=== PATIENT | male | born 1945 | race Two or more races ===

== ENCOUNTER 2019-04-15 09:30 | Inpatient (IN) | payer OTHER ==
[~2019-04-15] VITALS: Ht 182.9 cm; Wt 85.7 kg
--- NOTE | 2019-04-15 06:27 | NUR ---
Closing note: Patient is resting in bed, no acute distress. Even and unlabored breathing on room air. IV site to right forearm patent and intact, no infiltration. All needs met. Safety, fall precautions observed. Will endorse care to chandler RN. Addendum: 04/16/19 at 0632 by Vinayak Piper RN Please disregard above note, wrong date.
[2019-04-15 09:38] VITALS: BP_SYST 116
--- NOTE | 2019-04-15 09:38 | NUR ---
Patient to ER bed 5 to gown for evaluation. Side rails up. Report given to Antonio COOPER.
[2019-04-15] MEDS ORDERED: NS 500 ML IV ONE (09:45)
--- NOTE | 2019-04-15 09:45 | NUR ---
PATIENT PRESENTS TO THE ER WITH TWO DAY HX OF FALLS AND WEAKNESS; NO TRAUMA, NO OTHER REMARKABLE S/S; TO ER #5 AT 0930 AND ERMD EVALUATION AT 0945
[2019-04-15] MEDS ORDERED: ONDANSETRON HCL 4 MG/2 ML VIAL IVP ONE (10:00)
[2019-04-15] MEDS ORDERED: MORPHINE 2 MG/ML INJ. SYRINGE IVP ONE ×3 (10:00→12:00)
--- NOTE | 2019-04-15 10:08 | NUR ---
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
[2019-04-15 10:26] LABS: BASOPHILS % (AUTO) 0.3 % (0.0-2.0); EOSINOPHILS # (AUTO) 0.2 K/uL (0.0-0.4); EOSINOPHILS % (AUTO) 2.4 % (0.0-4.0); HEMATOCRIT 43.2 % (36-54); HEMOGLOBIN 14.5 g/dL (14.0-18.0); LYMPHOCYTES # (AUTO) 0.4 K/uL (1.0-5.5); LYMPHOCYTES % (AUTO) 5.4 % (20.5-51.5); MEAN CORPUSCULAR HEMOGLOBIN 30 pg (27-31); MEAN CORPUSCULAR HGB CONC 34 % (32-36); MEAN CORPUSCULAR VOLUME 90 fL (79.0-98.0); MONOCYTES # (AUTO) 0.4 K/uL (0.0-1.0); MONOCYTES % (AUTO) 6.4 % (1.7-9.3); NEUTROPHILS # (AUTO) 5.7 K/uL (1.8-7.7); NEUTROPHILS % (AUTO) 85.5 % (40.0-70.0); PLATELET COUNT (AUTO) 165 K/uL (130-430); RED BLOOD CELL COUNT(AUTO) 4.82 MIL/uL (4.2-6.2); RED CELL DISTRIBUTION WIDTH 13.7 % (9.0-15.0); WHITE BLOOD COUNT (AUTO) 6.6 K/uL (4.8-10.8)
--- NOTE | 2019-04-15 10:32 | NUR ---
IV PLACED #22 RAC; PATIENT STATES HE FEELS IMPROVED AFTER HYDRATION AND MEDS; DISPOSITION PENDING
[2019-04-15 10:38] LABS: ANION GAP 12 (5-15); CALCIUM 8.1 mg/dL (8.4-11.0); CHLORIDE 97 mmol/L (98-107); CREATININE 1.49 mg/dL (0.55-1.30); GLUCOSE 98 mg/dL (70-99); POTASSIUM 3.3 mmol/L (3.5-5.1); SODIUM SERUM 134 mmol/L (136-145); UREA NITROGEN, BLOOD 23 mg/dL (8-21)
[2019-04-15 10:41] LABS: INR 1.2 (0.80-1.20)
[2019-04-15 10:42] LABS: ALANINE AMINOTRANSFERASE 14 U/L (12-78); ALBUMIN 3.5 g/dL (3.4-4.8); ASPARTATE AMINOTRANSFERASE 22 U/L (10-37); TOTAL BILIRUBIN 1.9 mg/dL (0.0-1.0)
[2019-04-15] MEDS ORDERED: METOPROLOL TARTRATE 25 MG TABLET PO ONE (10:45)
--- NOTE | 2019-04-15 11:04 | NUR ---
REASSESSMENT; PATIENT STATES NEW ONSET OF LEFT LUMBAR PAIN; ERMD ADVISED; OTHERWISE SEDATE AND UNCHANGED
--- NOTE | 2019-04-15 11:05 | NUR ---
MORPHINE 2MG AND LOPRESSOR HELD PER ERMD
[2019-04-15] MEDS ORDERED: ASPI-858 PO (11:22)
[2019-04-15] MEDS ORDERED: HYD10 PO ×2 (11:22)
[2019-04-15] MEDS ORDERED: CARI350T27 PO (11:22)
[2019-04-15] MEDS ORDERED: ALBU90AE INH (11:22)
[2019-04-15] MEDS ORDERED: LACT1TAB26 PO (11:26)
[2019-04-15] MEDS ORDERED: POTA10CA68 PO (11:26)
[2019-04-15] MEDS ORDERED: PROP10TA10 PO (11:26)
[2019-04-15] MEDS ORDERED: MAGN400C PO (11:26)
[2019-04-15] MEDS ORDERED: NAPR-690 PO (11:26)
[2019-04-15] MEDS ORDERED: PROP20TA7 PO (11:26)
[2019-04-15] MEDS ORDERED: SILD100T PO (11:27)
[2019-04-15] MEDS ORDERED: SIMV40TA5 PO (11:27)
[2019-04-15] MEDS ORDERED: NACL 0.9% 1,000 ML IV ONE ×2 (12:00→12:15)
[2019-04-15] MEDS ORDERED: LORazepam 2 MG/ML VIAL IVP ONE (12:00)
[2019-04-15] MEDS ORDERED: LEVOFLOXACIN 500 MG/D5W 100 ML IV ONE (12:15)
[2019-04-15 14:13] LABS: BILIRUBIN,URINE NEGATIVE (NEGATIVE); BLOOD, URINE TRACE (NEGATIVE); CLARITY/URINE CLEAR (CLEAR); COLOR,URINE YELLOW (YELLOW); GLUCOSE,URINE NEGATIVE (NEGATIVE); KETONES,URINE TRACE (NEGATIVE); LEUKOCYTE ESTERASE ,URINE NEGATIVE (NEGATIVE); NITRITE, URINE NEGATIVE (NEGATIVE); PROTEIN URINE 1+ (NEGATIVE)
[2019-04-15] MEDS ORDERED: ACETAMINOPHEN 500 MG TABLET PO ONE (14:15)
[2019-04-15 14:17] LABS: BACTERIA,URINE FEW /HPF (None Seen)
--- NOTE | 2019-04-15 16:11 | NUR ---
PATIENT COMBATIVE AND UNCOOPERATIVE WITH STOOL AND URINE INCONTENANCE; PATIENT CLEANED AND IS MORE SEDATE NOW; MITTENS ATTEMPTED WITH NO BENEFIT AND DISCONTINUED; PREPARATIONS TO ADMIT TO TELE; TEMPERATURE ELEVATION RENOTIFIED TO ERMD; AT BED SIDE AND ADVISED; ADMISSION PENDING
--- NOTE | 2019-04-15 16:12 | NUR ---
IV NON FUNCTIONAL AND OUT AND DRESSED; #22 TO RIGHT FOREARM
[2019-04-15] MEDS ORDERED: ACETAMINOPHEN 500 MG TABLET ONE (16:33)
--- NOTE | 2019-04-15 16:34 | NUR ---
Patient will be admitted to care of Win Morales. Admitted to tele unit. Will go to room 134. Belongings list completed. Complete and up to date summary report printed. SBAR report to be given at bedside with opportunity for questions. Transfer to tele via ACLS protocol. Licensed nurse present. IV present no signs or symptoms of infiltration.
--- NOTE | 2019-04-15 16:36 | NUR ---
ADMISSION NOTE Received patient from ER via wilfredo, received report from NANI COOPER. Patient admitted with diagnosis of UROSEPSIS. Patient oriented to hospital routine, call light, toileting and safety-patient verbalized understanding.
[2019-04-15 16:53] VITALS: BP_SYST 103
[2019-04-15 16:54] VITALS: BP_SYST 103
[2019-04-15] MEDS: D5/0.45 NS 1,000 ML IV SCH (17:13)
--- NOTE | 2019-04-15 17:18 | NUR ---
CONSULTATION PAGED/CALLED Reason for Consultation: [] UROSEPSIS Person Who was Notified: [] QUINCY Consulting Physician: [] DR CREWS Salesperson Hosiery Specialty: [] ID Ordering Physician: [] DR Allison PALOMINO
--- NOTE | 2019-04-15 17:45 | NUR ---
Notes: Received patient from ER. cc of fever, back pain and general weakness, dx of Urosepsis. patient alert, awake, orientedx4, informed about the poc and verbalized understanding spouse at bedside. will take belongings home. left upper leg scratches noted. no open skin. call light within reach. bed alarm on. no other concerned noted.
--- NOTE | 2019-04-15 19:35 | NUR ---
Initial note: Received report from chandler RN. Patient is resting in bed, no acute distress. Tolerating room air. IV site patent and benign. Call light with patient. Safety, fall precautions in place. Will continue with plan of care.
[2019-04-15 20:00] VITALS: BP_SYST 101
[2019-04-15] MEDS ORDERED: ACETAMINOPHEN 325 MG TABLET PO PRN (20:00)
[2019-04-15] MEDS ORDERED: HYDROcodone/ACETAMIN 5-325 MG TAB (NORCO/ VICODIN) PO PRN (20:00)
[2019-04-15] MEDS ORDERED: CARISOPRODOL 350 MG TABLET PO SCH (20:00)
[2019-04-15] MEDS ORDERED: NON-FORMULARY MEDICATION (Sildenafil Citrate (Viagra) 100 MG) PO SCH (20:00)
[2019-04-15] MEDS ORDERED: HYDROcodone/ACETAMIN 10-325 MG TAB PO PRN (20:00)
[2019-04-15] MEDS ORDERED: ASPIRIN 325 MG TABLET PO SCH (20:00)
[2019-04-15] MEDS ORDERED: ONDANSETRON HCL 4 MG/2 ML VIAL IVP PRN (20:00)
[2019-04-15] MEDS ORDERED: ALBUTEROL SULFATE 0.083% 2.5 MG/3 ML VIAL.NEB INH PRN (20:00)
[2019-04-15] MEDS ORDERED: LORazepam 2 MG/ML VIAL IVP PRN (20:00)
[2019-04-15] MEDS ORDERED: LEVOFLOXACIN 500 MG/D5W 100 ML IV SCH (20:00)
[2019-04-15] MEDS ORDERED: NAPROXEN 250 MG TABLET PO PRN (20:00)
--- NOTE | 2019-04-15 22:20 | NUR ---
Dr. Win Morales: Spoke with MD to clarify medication orders. MD also made aware regarding K = 3.3. Orders received for 40 MEQ Potassium PO, verified by read-back, RN to input.
[2019-04-15] MEDS: HYDROCORTISONE 10 MG TABLET (CORTEF) PO SCH (22:24)
[2019-04-15] MEDS: SIMVASTATIN 40 MG TABLET PO SCH (22:24)
[2019-04-15] MEDS ORDERED: POTASSIUM CHLORIDE 20 MEQ TAB.PRT.SR PO ONE (22:30)
[2019-04-15] MEDS ORDERED: CARISOPRODOL 350 MG TABLET PO PRN (22:30)
[2019-04-16] VITALS (7 sets, daily range): BP systolic 93–133
--- NOTE | 2019-04-16 00:03 | NUR ---
Rounds: Patient is resting comfortably in bed, no acute distress. Even and unlabored respirations. IV fluids infusing well. Call light with patient. Will continue to monitor.
--- NOTE | 2019-04-16 03:32 | NUR ---
Rounds: Patient is sleeping in bed, no acute distress. Even and unlabored breathing. IV fluids infusing well. Call light with patient. Will continue to monitor.
[2019-04-16] MEDS: D5/0.45 NS 1,000 ML IV SCH ×3 (05:35→20:24)
--- NOTE | 2019-04-16 06:31 | NUR ---
Closing note: Patient is resting in bed, no acute distress. Even and unlabored breathing on room air. IV site to right forearm patent and intact, no infiltration. All needs met. Safety, fall precautions observed. Will endorse care to dayshift RN.
[2019-04-16 06:52] LABS: BASOPHILS % (AUTO) 0.3 % (0.0-2.0); EOSINOPHILS # (AUTO) 0.1 K/uL (0.0-0.4); EOSINOPHILS % (AUTO) 2.7 % (0.0-4.0); HEMATOCRIT 38.3 % (36-54); LYMPHOCYTES # (AUTO) 0.3 K/uL (1.0-5.5); LYMPHOCYTES % (AUTO) 5.9 % (20.5-51.5); MEAN CORPUSCULAR HEMOGLOBIN 30 pg (27-31); MEAN CORPUSCULAR HGB CONC 34 % (32-36); MEAN CORPUSCULAR VOLUME 89 fL (79.0-98.0); MONOCYTES # (AUTO) 0.6 K/uL (0.0-1.0); MONOCYTES % (AUTO) 10.9 % (1.7-9.3); NEUTROPHILS # (AUTO) 4.1 K/uL (1.8-7.7); NEUTROPHILS % (AUTO) 80.2 % (40.0-70.0); PLATELET COUNT (AUTO) 133 K/uL (130-430); RED BLOOD CELL COUNT(AUTO) 4.32 MIL/uL (4.2-6.2); RED CELL DISTRIBUTION WIDTH 13.9 % (9.0-15.0); WHITE BLOOD COUNT (AUTO) 5.2 K/uL (4.8-10.8)
[2019-04-16 07:23] LABS: ANION GAP 7 (5-15); CHLORIDE 101 mmol/L (98-107); CREATININE 1.31 mg/dL (0.55-1.30); GLUCOSE 110 mg/dL (70-99); POTASSIUM 3.8 mmol/L (3.5-5.1); SODIUM SERUM 130 mmol/L (136-145); UREA NITROGEN, BLOOD 15 mg/dL (8-21)
--- NOTE | 2019-04-16 08:00 | NUR ---
initial notes rec patient asleep but arousable to stimuli. ivf infusing well on the r forearm. no infiltration noted. resp easy unlabored. no sob noted. bed to the lowest position and side rails up and locked. call light withn reached and knows when to calll for assistance. voiding using the urinal and uses the commode and had a small amount of bm. will continue to monitor patient.
[2019-04-16 08:50] LABS: C-REACTIVE PROTEIN QUANT 29.3 mg/dL (0-0.5)
[2019-04-16 08:58] LABS: CALCIUM 6.9 mg/dL (8.4-11.0)
[2019-04-16] MEDS ORDERED: POTASSIUM CHLORIDE 10 MEQ PO SCH (09:00)
[2019-04-16] MEDS ORDERED: NON-FORMULARY MEDICATION (Magnesium Oxide (Magnesium) 400 MG) PO SCH (09:00)
[2019-04-16] MEDS ORDERED: PROPRANOLOL HCL 20 MG PO SCH (09:00)
[2019-04-16 09:13] LABS: ERYTHROCYTE SEDIMENTATION RATE 34 MM/HR (0-15)
[2019-04-16] MEDS: LEVOFLOXACIN 500 MG/D5W 100 ML IV SCH (11:20)
[2019-04-16] MEDS: LACTOBACILLUS RHAMNOSUS GG 1 CAP CAPSULE PO SCH (11:24)
[2019-04-16] MEDS: ASPIRIN 325 MG TABLET PO SCH (11:24)
[2019-04-16] MEDS: MAGNESIUM OXIDE 400 MG TABLET PO SCH (11:24)
[2019-04-16] MEDS: POTASSIUM CHLORIDE 10 MEQ TAB.PRT.SR PO SCH (11:24)
[2019-04-16] MEDS: PROPRANOLOL HCL 10 MG TABLET (INDERAL) PO SCH ×2 (11:25→18:14)
[2019-04-16] MEDS: HYDROCORTISONE 10 MG TABLET (CORTEF) PO SCH ×2 (11:28→20:35)
[2019-04-16] MEDS ORDERED: CALCIUM GLUCONATE 2 GM in NS 100 ML IV ONE ×2 (12:00→15:00)
--- NOTE | 2019-04-16 12:00 | NUR ---
rounds wasseen by dr mahajan and dr morris and with orders. no sob noted. call light withn reached. ambulated with pt on thr hallway and mario well.
--- NOTE | 2019-04-16 12:29 | NUR ---
Nutrition Update Dawit Scale 18 noted. Pt admitted for urosepsis Diet: cardiac BMI: 27.3 kg/m2 RD to follow per nutrition care standards.
--- NOTE | 2019-04-16 12:52 | NUR ---
P.T. NOTES P.T. SEVERIANO COMPLETED; PATIENT MAY KATHRINE W/ NURSE FAUSTO HOYT. Addendum: 04/16/19 at 1252 by Mere Chao PT Amended: Links added.
[2019-04-16] MEDS ORDERED: VANCOMYCIN HCL 1,000 MG in NS 250 ML IV SCH (13:00)
--- NOTE | 2019-04-16 16:00 | NUR ---
rounds due mabx was given and mario well. no untoward reaction noted.
[2019-04-16] MEDS: MICAFUNGIN SODIUM 100 MG in NS 100 ML IV SCH (16:46)
--- NOTE | 2019-04-16 18:32 | NUR ---
closing notes was moved to another room. ambulated with nestor spencer and mario krishnan. at bedside with patient. denies pain when offerrd pain med/
--- NOTE | 2019-04-16 19:45 | NUR ---
OPENING NOTES Received report from KENNETH Gomez. Patient is resting in bed, awake, alert, oriented x 4, breathing evenly and nonlabored on room air, at the bedside. Patient has an IV on the right forearm 20g, IVF running, patient is tolerating it well. Educated patient on plan of care, fall/safety precautions, call light system, patient stated understanding with return demonstration. Bed is locked, armed, and at lowest position, will continue to monitor.
[2019-04-16] MEDS: SIMVASTATIN 40 MG TABLET PO SCH (20:36)
--- NOTE | 2019-04-16 20:45 | NUR ---
MEDICATION/ROUNDS Patient is resting in bed, awake, breathing evenly and nonlabored on room air. Educated patient on medications, patient stated understanding. Administered medications, patient tolerated it well. No s/s of distress at this time, no other needs at this time. Fall/safety precautions, will continue to monitor.
--- NOTE | 2019-04-16 22:40 | NUR ---
ROUNDS Patient is resting in bed, awake, breathing evenly and nonlabored on room air. Educated patient on need for sputum to be collected, patient stated understanding. No s/s of distress at this time, no other needs at this time. Fall/safety precautions, will continue to monitor.
--- NOTE | 2019-04-17 00:30 | NUR ---
ROUNDS Patient is resting in bed, awake, breathing evenly and nonlabored on room air. Patient was able to give sample for sputum earlier. Assisted patient to and from the bathroom. No s/s of distress at this time, no other needs at this time. Fall/safety precautions, will continue to monitor.
--- NOTE | 2019-04-17 02:30 | NUR ---
ROUNDS Patient is resting in bed, eyes closed, breathing evenly and nonlabored on room air. PNo s/s of distress at this time, no other needs at this time. Fall/safety precautions, will continue to monitor.
--- NOTE | 2019-04-17 04:30 | NUR ---
ROUNDS Patient is resting in bed, eyes closed, breathing evenly and nonlabored on room air. No s/s of distress at this time, no other needs at this time. Fall/safety precautions, will continue to monitor.
--- NOTE | 2019-04-17 06:33 | NUR ---
CLOSING NOTES Patient is resting in bed, eyes closed, breathing evenly and nonlabored on room air. Needs met throughout the shift. Fall/safety precautions, will endorse care to morning shift RN.
[2019-04-17 08:00] VITALS: BP_SYST 113
--- NOTE | 2019-04-17 08:00 | NUR ---
initial notes rec patient awake alert with hob elevated. ivf infusing well on the r forearm. no infiltration noted. resp easy and unlabored, no sob noted. bed to the lowest position and side rails up and locked. call light within reached. will continue to monitor patient.
[2019-04-17 08:57] LABS: BASOPHILS % (AUTO) 0.6 % (0.0-2.0); EOSINOPHILS # (AUTO) 0.2 K/uL (0.0-0.4); EOSINOPHILS % (AUTO) 5.1 % (0.0-4.0); HEMATOCRIT 38.8 % (36-54); HEMOGLOBIN 12.9 g/dL (14.0-18.0); LYMPHOCYTES # (AUTO) 0.6 K/uL (1.0-5.5); LYMPHOCYTES % (AUTO) 17.3 % (20.5-51.5); MEAN CORPUSCULAR HEMOGLOBIN 30 pg (27-31); MEAN CORPUSCULAR HGB CONC 33 % (32-36); MEAN CORPUSCULAR VOLUME 90 fL (79.0-98.0); MONOCYTES # (AUTO) 0.3 K/uL (0.0-1.0); NEUTROPHILS # (AUTO) 2.2 K/uL (1.8-7.7); PLATELET COUNT (AUTO) 153 K/uL (130-430); RED BLOOD CELL COUNT(AUTO) 4.33 MIL/uL (4.2-6.2); RED CELL DISTRIBUTION WIDTH 14.1 % (9.0-15.0); WHITE BLOOD COUNT (AUTO) 3.2 K/uL (4.8-10.8)
[2019-04-17] MEDS: D5/0.45 NS 1,000 ML IV SCH ×2 (09:13→20:13)
[2019-04-17 09:14] LABS: ANION GAP 7 (5-15); CALCIUM 8.2 mg/dL (8.4-11.0); CHLORIDE 104 mmol/L (98-107); CREATININE 1.03 mg/dL (0.55-1.30); GLUCOSE 103 mg/dL (70-99); POTASSIUM 3.8 mmol/L (3.5-5.1); SODIUM SERUM 136 mmol/L (136-145); UREA NITROGEN, BLOOD 10 mg/dL (8-21)
[2019-04-17 09:26] LABS: C-REACTIVE PROTEIN QUANT 19.7 mg/dL (0-0.5)
[2019-04-17] MEDS ORDERED: VANCOMYCIN HCL 1,000 MG in NS 250 ML IV ONE (10:00)
[2019-04-17] MEDS: PROPRANOLOL HCL 10 MG TABLET (INDERAL) PO SCH ×2 (10:00→18:21)
--- NOTE | 2019-04-17 10:00 | NUR ---
rounds due meds given as ordered.
[2019-04-17] MEDS: POTASSIUM CHLORIDE 10 MEQ TAB.PRT.SR PO SCH (10:01)
[2019-04-17] MEDS: HYDROCORTISONE 10 MG TABLET (CORTEF) PO SCH ×2 (10:01→20:12)
[2019-04-17] MEDS: MAGNESIUM OXIDE 400 MG TABLET PO SCH (10:02)
[2019-04-17] MEDS: LACTOBACILLUS RHAMNOSUS GG 1 CAP CAPSULE PO SCH (10:02)
[2019-04-17] MEDS: ASPIRIN 325 MG TABLET PO SCH (10:02)
[2019-04-17 10:47] LABS: ERYTHROCYTE SEDIMENTATION RATE 51 MM/HR (0-15)
--- NOTE | 2019-04-17 12:30 | NUR ---
rounds seen by dr morris, due abx was given. no sob noted.
[2019-04-17] MEDS: LEVOFLOXACIN 500 MG/D5W 100 ML IV SCH (12:51)
[2019-04-17] MEDS: MICAFUNGIN SODIUM 100 MG in NS 100 ML IV SCH (13:52)
--- NOTE | 2019-04-17 14:00 | NUR ---
rounds due med given as ordered. call light within reached.
--- NOTE | 2019-04-17 14:27 | NUR ---
Dietitian Recommendations *Continue cardiac diet Please see Nutrition Assessment for further details. LT, RD
--- NOTE | 2019-04-17 16:00 | NUR ---
rounds resting comfortably at bedside. no sob noted.
[2019-04-17 16:20] VITALS: BP_SYST 110
--- NOTE | 2019-04-17 18:27 | NUR ---
closing notes ambulates at intervals to the br. stable needs attended. no sob noted. call light withn reached.
--- NOTE | 2019-04-17 19:40 | NUR ---
OPENING NOTES Received report from KENNETH Gomez. Patient is resting in bed, awake, alert, oriented x 4, breathing evenly and nonlabored on room air. Patient has an IV on the right forearm 20g, IVF running, patient is tolerating it well. Educated patient on plan of care, fall/safety precautions, call light system, patient stated understanding with return demonstration. Bed is locked, armed, and at lowest position, will continue to monitor.
[2019-04-17 20:10] VITALS: BP_SYST 116
[2019-04-17] MEDS: VANCOMYCIN HCL 1,000 MG in NS 250 ML IV SCH (20:12)
[2019-04-17] MEDS: SIMVASTATIN 40 MG TABLET PO SCH (20:12)
--- NOTE | 2019-04-17 22:15 | NUR ---
ROUNDS Patient is resting in bed, awake, breathing evenly and nonlabored on room air. Educated patient on need for sputum to be collected again because the first one collected was contaminated per lab, patient stated understanding. No s/s of distress at this time, no other needs at this time. Fall/safety precautions, will continue to monitor.
--- NOTE | 2019-04-18 01:45 | NUR ---
ROUNDS Patient is resting in bed, eyes closed, breathing evenly and nonlabored on room air. Assisted patient to and from the bathroom earlier. No s/s of distress at this time, no other needs at this time. Fall/safety precautions, will continue to monitor.
[2019-04-18 01:52] VITALS: BP_SYST 112
--- NOTE | 2019-04-18 05:30 | NUR ---
ROUNDS Patient is resting in bed, eyes closed, breathing evenly and nonlabored on room air. No s/s of distress at this time, no other needs at this time. Fall/safety precautions.
[2019-04-18 07:47] LABS: BASOPHILS % (AUTO) 0.7 % (0.0-2.0); EOSINOPHILS # (AUTO) 0.2 K/uL (0.0-0.4); EOSINOPHILS % (AUTO) 4.6 % (0.0-4.0); HEMATOCRIT 37.5 % (36-54); HEMOGLOBIN 12.4 g/dL (14.0-18.0); LYMPHOCYTES # (AUTO) 0.6 K/uL (1.0-5.5); LYMPHOCYTES % (AUTO) 18.3 % (20.5-51.5); MEAN CORPUSCULAR HEMOGLOBIN 30 pg (27-31); MEAN CORPUSCULAR HGB CONC 33 % (32-36); MEAN CORPUSCULAR VOLUME 90 fL (79.0-98.0); MONOCYTES # (AUTO) 0.4 K/uL (0.0-1.0); MONOCYTES % (AUTO) 11.4 % (1.7-9.3); NEUTROPHILS # (AUTO) 2.1 K/uL (1.8-7.7); PLATELET COUNT (AUTO) 164 K/uL (130-430); RED BLOOD CELL COUNT(AUTO) 4.16 MIL/uL (4.2-6.2); RED CELL DISTRIBUTION WIDTH 13.6 % (9.0-15.0); WHITE BLOOD COUNT (AUTO) 3.2 K/uL (4.8-10.8)
[2019-04-18 08:00] VITALS: BP_SYST 127
--- NOTE | 2019-04-18 08:00 | NUR ---
initial notes rec patient awake alert with hob elevated . ivf infusing well on the r forearm. no infiltration noted. resp easy and unlabored. no sob noted. bed to the lowest position and side rails up and locked. call light within reached and knows when to call for assistance.will continue to monitor patient.
[2019-04-18 08:09] LABS: ALANINE AMINOTRANSFERASE 17 U/L (12-78); ALBUMIN 2.7 g/dL (3.4-4.8); ANION GAP 5 (5-15); ASPARTATE AMINOTRANSFERASE 19 U/L (10-37); C-REACTIVE PROTEIN QUANT 7.8 mg/dL (0-0.5); CALCIUM 8.1 mg/dL (8.4-11.0); CHLORIDE 107 mmol/L (98-107); GLUCOSE 103 mg/dL (70-99); POTASSIUM 4.4 mmol/L (3.5-5.1); SODIUM SERUM 137 mmol/L (136-145); TOTAL BILIRUBIN 0.5 mg/dL (0.0-1.0); UREA NITROGEN, BLOOD 14 mg/dL (8-21)
[2019-04-18] MEDS: MAGNESIUM OXIDE 400 MG TABLET PO SCH (09:12)
[2019-04-18] MEDS: ASPIRIN 325 MG TABLET PO SCH (09:12)
[2019-04-18] MEDS: POTASSIUM CHLORIDE 10 MEQ TAB.PRT.SR PO SCH (09:12)
[2019-04-18] MEDS: LACTOBACILLUS RHAMNOSUS GG 1 CAP CAPSULE PO SCH (09:12)
[2019-04-18] MEDS: HYDROCORTISONE 10 MG TABLET (CORTEF) PO SCH (09:13)
[2019-04-18] MEDS: PROPRANOLOL HCL 10 MG TABLET (INDERAL) PO SCH (09:14)
[2019-04-18] MEDS: D5/0.45 NS 1,000 ML IV SCH (09:15)
[2019-04-18] MEDS: VANCOMYCIN HCL 1,000 MG in NS 250 ML IV SCH (09:15)
[2019-04-18 09:27] LABS: ERYTHROCYTE SEDIMENTATION RATE 42 MM/HR (0-15)
--- NOTE | 2019-04-18 10:30 | NUR ---
rounds seen by dr morris and stated to wait for dr mahajan if he will be d/c. due meds were given and mario well. ambulates to the br with steady gait.
[2019-04-18] MEDS: LEVOFLOXACIN 500 MG/D5W 100 ML IV SCH (12:10)
[2019-04-18] MEDS: MICAFUNGIN SODIUM 100 MG in NS 100 ML IV SCH (13:05)
[2019-04-18 15:00] VITALS: BP_SYST 136
[2019-04-18 15:13] VITALS: BP_SYST 122
--- NOTE | 2019-04-18 15:30 | NUR ---
closing notes pt was discharged afetr iv abx were infused. seen by dr mahajan and cleared to go. dr james morris was called and gave orders for d/c/. exit care given. instructed re appt to pmd , dr mahajan in 1 week and to resume meds from home. refused wheelchair and ambulated outside. no sob noted. stable and needs attended.
[2019-04-20 20:06] LABS: MYCOPLASMA PNEUMONIAE IgM <770 U/mL (0-769)
== END 2019-04-18 15:35 | disposition home or self-care (01) | DRG 871 ==
LOC: SED 09:30 → STU 14:24
PROVIDERS: ADMIT Preventive Medicine Preventive Medicine/Occupational Environmental Medicine; ATTEND Preventive Medicine Preventive Medicine/Occupational Environmental Medicine
DX: A41.9 Sepsis, unspecified organism (principal); J18.9 Pneumonia, unspecified organism; E87.1 Hypo-osmolality and hyponatremia; E87.2 Acidosis; J44.0 Chronic obstructive pulmonary disease with (acute) lower respiratory infection; N10 Acute pyelonephritis; N17.9 Acute kidney failure, unspecified; C34.90 Malignant neoplasm of unspecified part of unspecified bronchus or lung; E78.5 Hyperlipidemia, unspecified; E83.52 Hypercalcemia; E87.6 Hypokalemia; I10 Essential (primary) hypertension; K57.90 Diverticulosis of intestine, part unspecified, without perforation or abscess without bleeding; Z87.891 Personal history of nicotine dependence; Z88.0 Allergy status to penicillin; Z79.899 Other long term (current) drug therapy; Z79.82 Long term (current) use of aspirin; Z92.21 Personal history of antineoplastic chemotherapy
CPT/HCPCS: 36415; 70450-TC; 71045; 80048; 80053; 81000-TC; 83605; 83880; 84484; 85025; 85610-TC; 85651-TC; 85730-TC; 86140; 86738; 87040-TC; 87086; 87205-TC; 87497; 94640; 96365; 96375; 99285; G0378; J0610; J1956; J2060; J2248; J2270; J2405; J3370; J7050; J7613